=== PATIENT | male | born 1995 | race Caucasian/White ===

== ENCOUNTER 2019-05-05 16:24 | Emergency (ER) | payer BC ==
[~2019-05-05] VITALS: Ht 165.1 cm; Wt 68.2 kg
[2019-05-05 16:41] VITALS: TEMP 98.7
[2019-05-05 18:04] LABS: COLLECTION METHOD CLEAN CATCH
[2019-05-05 18:06] LABS: BASO % 0.3 % (0.0-2.0); EOS # 0.1 (0.0-0.7); EOS % 0.6 % (0-4.0); GRAN # 8.3 (1.4-6.5); GRAN % 66.9 % (42.2-75.2); HEMATOCRIT 48.2 % (42.0-52.0); HEMOGLOBIN 16.1 g/dl (13.5-18.0); LYMPH # 3.3 (1.2-3.4); LYMPH % 26.8 % (20.0-51.0); MEAN CELL VOLUME 86 fl (80.0-100.0); MEAN CORPUSCULAR HEMOGLOBIN 29 pg (27.0-31.0); MEAN CORPUSCULAR HGB CONC 33 g/dl (33.0-37.0); MONO # 0.6 (0.1-0.6); MONO % 5.2 % (1.7-9.3); PLATELET COUNT 338 K/mm3 (130-400); RED BLOOD COUNT 5.63 M/mm3 (4.20-5.60); REDCELL DISTRIBUTION WIDTH-CV 12.5 % (11.5-14.5)
[2019-05-05 18:16] LABS: MUCOUS Present /lpf; PH 7 (5-8); SQUAMOUS EPITHELIAL None Seen /hpf; URINE APPEARANCE Clear; URINE BACTERIA None Seen /hpf; URINE BILIRUBIN Negative (NEGATIVE); URINE BLOOD Negative (NEGATIVE); URINE COLOR Yellow; URINE GLUCOSE Negative (NEGATIVE); URINE KETONE Negative (NEGATIVE); URINE LEUKOCYTE ESTERASE Negative (NEGATIVE); URINE NITRATE Negative (NEGATIVE); URINE PROTEIN(semi-quant) Negative (NEGATIVE); URINE RBC 0-2 /hpf; URINE UROBILINOGEN Negative (NEGATIVE)
[2019-05-05 18:20] LABS: ALANINE AMINOTRANSFERASE 51 U/L (21-72); ALBUMIN 4.9 gm/dL (3.5-5.0); ALKALINE PHOSPHATASE 68 U/L (50-136); ANION GAP 12 mmol/L (7-16); AST,SGOT 34 U/L (15-37); BILIRUBIN,TOTAL 0.6 mg/dL (0.0-1.0); BLOOD UREA NITROGEN 14 mg/dL (9-20); CALCIUM 9.4 mg/dL (8.4-10.2); CARBON DIOXIDE 25 mmol/L (22-30); CHLORIDE 104 mmol/L (98-107); CREATININE, serum 0.85 (0.66-1.25); GLUCOSE 97 mg/dL (74-106); SODIUM 140 mmol/L (137-145); TOTAL PROTEIN 7.8 gm/dL (6.4-8.2)
[2019-05-05 18:23] LABS: ACETAMINOPHEN < 10 ug/mL (10-30); ALCOHOL(ethanol),MEDICAL < 10 mg/dL
[2019-05-05 18:28] LABS: TRICYCLIC ANTIDEPRESS URINE NEGATIVE
[2019-05-05 23:30] VITALS: BP 105/59
[2019-05-06] MEDS ORDERED: ZOLOFT 100MG100 MG PO (00:55)
[2019-05-06] MEDS ORDERED: VRAYLAR1.5 MG PO (00:56)
[2019-05-06 02:52] VITALS: PULSE 87
== END 2019-05-06 02:50 ==
LOC: COL.ER 16:24
PROVIDERS: Family Medicine
DX: F32.9 Major depressive disorder, single episode, unspecified (principal)

== ENCOUNTER 2021-01-14 16:55 | Emergency (ER) | payer BC ==
[~2021-01-14] VITALS: Ht 165.1 cm; Wt 68.2 kg
[~2021-01-14 16:55] MED LIST: VRAYLAR1.5 MG PO; ZOLOFT 100MG100 MG PO
[2021-01-14] MEDS ORDERED: CEPHALEXIN500 M1 PO (20:38)
[2021-01-14] MEDS ORDERED: NORCO 325 MG-51 TAB PO (21:02)
[2021-01-14 21:55] VITALS: BP 133/93; PULSE 87; TEMP 97.9
== END 2021-01-14 21:55 | disposition home or self-care (01) ==
LOC: COL.ER 16:55
DX: S62.637A Displaced fracture of distal phalanx of left little finger, initial encounter for closed fracture (principal); W23.1XXA Caught, crushed, jammed, or pinched between stationary objects, initial encounter
CPT/HCPCS: J0696